=== PATIENT | male | born 1970 | race African-American/Black ===

== ENCOUNTER 2019-05-08 19:41 | Emergency (ER) | payer OTHER ==
[2019-05-08 20:10] VITALS: BP 125/68; PULSE 75; TEMP 98.2; BMI 27.3
[2019-05-08] MEDS ORDERED: ERYTHROMYCIN 0.5% OPHTHALMIC OINTMENT 3.5 GM TUBE OU ONE (21:24)
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
[2019-05-08] MEDS ORDERED: DIPHTH,PERTUSS(ACELL),TET 0.5 ML DISP.SYRIN IM ONE ×2 (21:27→21:30)
[2019-05-08] MEDS ORDERED: IBUPROFEN 600 MG TABLET (FP) PO ONE ×2 (21:27→21:29)
[2019-05-08] MEDS ORDERED: ERYTHROMYCIN 0.5% OPHTHALMIC OINTMENT 3.5 GM TUBE ONE (21:29)
== END 2019-05-08 21:41 | disposition home or self-care (01) ==
LOC: JERFT 19:41
PROC: 3E0234Z Introduction of Serum, Toxoid and Vaccine into Muscle, Percutaneous Approach (ICD-10-PCS; principal; 2019-05-08)
DX: H11.33 Conjunctival hemorrhage, bilateral (principal); T14.8XXA Other injury of unspecified body region, initial encounter; J45.909 Unspecified asthma, uncomplicated
CPT/HCPCS: 90715; 99283-25